=== PATIENT | male | born 1960 | race Caucasian/White ===

== ENCOUNTER 2019-01-31 10:39 | Emergency (ER) | payer BC ==
[2019-01-31 11:16] VITALS: BP 129/97
--- NOTE | 2019-01-31 11:30 | UC ---
Ear Complaint HPI - HPI Summary HPI Summary: 58-year-old male who complains of right ear pain. He describes as sharp and shooting and intermittent. He has had this is a chronic problem at times. His ear nose and throat physician told him this was due to changes in weather as well as age. Patient denies any recent cold symptoms and no fever or chills. The patient also would like the skin around his left nipple checked. He said in the past he has had a dry rash there "for years". He will occasionally apply hydrocortisone cream to the area. He wanted checked but has not had any problem with that over the past week. He has been to a dock boss in the past but he can't remember if he had shown the dock boss or talked with him about that. The only history related to that area is years ago he removed a skin tag on his own and did not see a dock boss. - History of Current Complaint Chief Complaint: UCEar Stated Complaint: EAR ACHE Time Seen by Provider: 01/31/19 10:48 Hx Obtained From: Patient Onset/Duration: Gradual Onset, Lasting Days Severity Initially: Mild Severity Currently: Moderate Pain Intensity: 8 Aggravating Factors: Nothing Alleviating Factors: Nothing - Allergies/Home Medications Allergies/Adverse Reactions: Allergies Allergy/AdvReac Type Severity Reaction Status Date / Time No Known Allergies Allergy Verified 01/31/19 11:08 Home Medications: Home Medications Atorvastatin* [Lipitor*] 10 mg PO DAILY 01/31/19 [History Confirmed 01/31/19] Fluticasone NASAL SPRAY 50MCG* [Flonase NASAL SPRAY 50MCG*] 2 spray BOTH NARES DAILY 01/31/19 [History Confirmed 01/31/19] Lansoprazole [Prevacid] 15 mg PO DAILY 01/31/19 [History Confirmed 01/31/19] PMH/Surg Hx/FS Hx/Imm Hx Previously Healthy: Yes Cardiovascular History: Cardiac Disease - Surgical History Surgical History: Yes Surgery Procedure, Year, and Place: L knee surgery. R inguinal hernia repair - Family History Known Family History: Positive: Non-Contributory - Social History Alcohol Use: None Substance Use Type: None Smoking Status (MU): Never Smoked Tobacco Review of Systems All Other Systems Reviewed And Are Negative: Yes ENT: Positive: Ear Ache - Intermittent, sharp shooting. Patient states this is a chronic problem and he has been to an ear nose and throat physician. He does take Flonase for this. He denies any symptoms of illness. Is Patient Immunocompromised?: No Physical Exam Triage Information Reviewed: Yes Appearance: Well-Appearing, No Pain Distress, Well-Nourished Vital Signs: Initial Vital Signs Temp 98.1 F 01/31/19 11:10 Pulse 82 01/31/19 11:10 Resp 16 01/31/19 11:10 BP 129/97 01/31/19 11:10 Pulse Ox 99 01/31/19 11:10 Vital Signs Reviewed: Yes Eyes: Positive: Conjunctiva Clear ENT: Positive: Pharynx normal, TMs normal, Uvula midline Neck: Positive: Supple, Nontender, No Lymphadenopathy Respiratory: Positive: Lungs clear, Normal breath sounds, No respiratory distress, No accessory muscle use Cardiovascular: Positive: RRR, No Murmur, Pulses Normal, Brisk Capillary Refill Psychological Exam: Normal Skin: Positive: Other - The skin around the left nipple is normal with no rash, no erythema, no swelling or drainage. Ear Complaint Course/Dx - Course Course Of Treatment: The patient is comfortable here. I find no evidence for an ear infection. He can continue his present medications including his Flonase. He may take Aleve twice a day for pain. He is to follow-up with an ear nose and throat physician if he has continued ear pain over the next week. If he develops a rash again near his left nipple he can apply hydrocortisone cream for itching but he needs to follow-up with a dock boss. Patient is agreeable to this plan of action. - Differential Dx/Diagnosis Provider Diagnosis: Otalgia, right ear Discharge ED - Sign-Out/Discharge Documenting (check all that apply): Patient Departure All imaging exams completed and their final reports reviewed: No Studies - Discharge Plan Condition: Good Disposition: HOME Patient Education Materials: Earache (ED) Referrals: Care [facility] [Outside] No Primary Care Phys,NOPCP [Primary Care Provider] - Additional Instructions: Continue your present medications. May take Aleve twice a day for pain. May apply had cortisone cream to the skin area of concern. Follow-up with a dock boss regarding the skin concern and with your primary care provider or [facility] or ear nose and throat physician if the ear pain does not subside. - Billing Disposition and Condition Condition: GOOD Disposition: Home
== END 2019-01-31 11:35 | disposition home or self-care (01) ==
LOC: UCEAST 10:39
DX: H92.01 Otalgia, right ear (principal)
CPT/HCPCS: 99201; G0463